=== PATIENT | male | born 1975 | race Caucasian/White ===

== ENCOUNTER → 2023-12-18 15:05 | Outpatient (REF) | payer BC, SELFPAY | LOC: RAD 15:05 | PROVIDERS: ATTENDING PHYSICIAN Internal Medicine | DX: Z87.891 Personal history of nicotine dependence (principal); Z12.2 Encounter for screening for malignant neoplasm of respiratory organs; M25.552 Pain in left hip; M54.42 Lumbago with sciatica, left side | CPT/HCPCS: 71271; 72110; 73502 ==

== ENCOUNTER 2024-12-15 19:42 | Emergency (ER) | payer BC, SELFPAY ==
[2024-12-15 19:42] VITALS: BMI 34.1
[2024-12-15 19:43] VITALS: BP 200/124
[2024-12-15] MEDS: MORPHINE SULFATE 4 MG IV ×2 (21:06→22:26)
[2024-12-15] MEDS: NSS 1000 IV (21:07)
[2024-12-15] MEDS: ZOFRAN 4 MG IV (21:07)
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
[2024-12-15] MEDS: BACITRACIN OINTMENT 1 APPLIC S (22:26)
== END 2024-12-15 23:35 | disposition home or self-care (01) ==
LOC: EMR 19:42
PROVIDERS: EMERGENCY PHYSICIAN Emergency Medicine; FAMILY PHYSICIAN Internal Medicine
DX: T24.232A Burn of second degree of left lower leg, initial encounter (principal); T24.231A Burn of second degree of right lower leg, initial encounter; T25.222A Burn of second degree of left foot, initial encounter; T25.221A Burn of second degree of right foot, initial encounter; T22.20XA Burn of second degree of shoulder and upper limb, except wrist and hand, unspecified site, initial encounter; X02.8XXA Other exposure to controlled fire in building or structure, initial encounter; T31.0 Burns involving less than 10% of body surface; E78.00 Pure hypercholesterolemia, unspecified; I10 Essential (primary) hypertension; F17.200 Nicotine dependence, unspecified, uncomplicated
CPT/HCPCS: 16020; 96374; 96375; 96376; 96361; 99284

== ENCOUNTER → 2025-01-22 11:53 | Outpatient (REF) | payer BC, SELFPAY ==
[2025-01-22 12:38] LABS: Hematocrit 47.4 % (39.0-52.0); Hemoglobin 15.8 g/dL (13.0-18.0); Mean Corp Hgb Conc. 33.3 g/dL (33.0-37.0); Mean Corpuscular Volume 88.1 fL (80.0-94.0); Nucleated Red Blood Cells % 0 % (-); Platelet Count 296 10^3/uL (130-400); Red Cell Dist. Width 12.6 % (11.5-14.5)
[2025-01-22 15:20] LABS: ALT (SGPT) 37 U/L (0-50); AST (SGOT) 27 U/L (17-59); Albumin 4.9 g/dl (3.5-5.0); Alkaline Phosphatase 108 U/L (38-126); Blood Urea Nitrogen 17 mg/dl (9-20); Calcium 9.7 mg/dl (8.4-10.2); Carbon Dioxide 27 mmol/L (22-30); Chloride 102 mmol/L (98-107); Glucose 88 mg/dl (70-99); HDL Cholesterol 59 mg/dl; LDL Cholesterol, Calculated 143 mg/dl; Potassium 4.9 mmol/L (3.5-5.1); Sodium 136 mmol/L (135-145); Total Protein 7.6 g/dl (6.3-8.2); Very Low Density Lipoprotein 32 mg/dl (0-30); eGFR > 60.00
== END ==
LOC: REG 11:53
PROVIDERS: ATTENDING PHYSICIAN Nurse Practitioner Adult Health; FAMILY PHYSICIAN Internal Medicine
DX: Z00.00 Encounter for general adult medical examination without abnormal findings (principal); Z79.899 Other long term (current) drug therapy; Z13.29 Encounter for screening for other suspected endocrine disorder; E78.2 Mixed hyperlipidemia; I10 Essential (primary) hypertension
CPT/HCPCS: 36415; 80053; 80061; 84153; 84154; 84443; 85025